=== PATIENT | male | born 1985 | race Two or more races ===

== ENCOUNTER → 2020-09-26 | Outpatient (CLI) | payer OTHER | END | disposition home or self-care (01) | LOC: PPH VACUNA 14:57 | DX: Z23 Encounter for immunization (principal) ==

== ENCOUNTER 2021-05-31 08:30 | Outpatient (CLI) | payer OTHER | END 2021-05-31 09:00 | disposition home or self-care (01) | LOC: PPH VACUNA 08:30 | PROVIDERS: ATTEND Emergency Medicine Pediatric Emergency Medicine | DX: Z23 Encounter for immunization (principal) ==

== ENCOUNTER 2023-02-06 23:59 | Inpatient (IN) | payer OTHER ==
[~2023-02-06] VITALS: Ht 177.8 cm; Wt 158.8 kg
[2023-02-07] MEDS ORDERED: AMLODIPINE-OLM1 EAC2 PO (00:26)
--- NOTE | 2023-02-07 00:26 | NUR ---
SE RECIBE PACIENTE ALERTA Y ORIENTADO X3, REFIERE TENER PRESION Y DOLOR DE PECHO Y DIFICULTAD RESPIRATORIA. PTE MENCIONA QUE INGIRIO DOS BEBIDAS ENERGIZANTES. SE REALIZA EKG, SE MONITOREAN VS Y SE UBICA.
--- NOTE | 2023-02-07 01:04 | NUR ---
PACIENTE ALERTA Y ORIENTADO X3. EN POSICION SENTADO EN CAMA #2 EN UNIDAD DE CRITICO CON BARANDAS ELEVADAS Y INTERCOM ACCESIBLE. SE CONECTA A MONITOR CARDIACO Y OXIMETRIA DE PULSO. SE COLOCA CANULA NASAL A 2L Y PACIENTE SATURANDO OXIGENO MANUAL 98%. SE ORIENTA SOBRE TX Y PROCEDIMIENTO A REALIZAR Y REFIRIO ENTENDER. SE ADMINISTRO NITROGLICERINA SL ORDENADA POR MD Y PACIENTE REFIRIO SENTIR ALIVIO DEL DOLOR. SE REALIZA MUESTRAS DE LABORATORIO BAJO MEDIDAS ASEPTICAS. SE CANALIZA EN BRAZO OBEY CON ANGIO #18 Y ANGIO #22 EN ANTEBRAZO OBEY BAJO MEDIDAS ASEPTICAS. CANALIZACIONES PATENTES Y MILAGROS DE EDEMA Y ERITEMA. PENDIENTE MUESTRA DE U/A. SE MANTIENE BAJO OBSERVACION POR CAMBIOS SIGNIFICATIVOS.
--- NOTE | 2023-02-07 01:40 | NUR ---
SE ADMINISTRA DRIP DE TRIDIL 50MG/250ML D5W BAJANDO A 3ML/HR. SE MONITOREAN SIGNOS VITALES.
--- NOTE | 2023-02-07 03:06 | NUR ---
PACIENTE REFIERE SENTIR MUCHOS GASES. SE ADMINISTRA MEDICAMENTO ORDENADO POR .
--- NOTE | 2023-02-07 05:41 | NUR ---
SE RECOLECTA MUESTRA DE U/A Y SE ENVIA A LABORATORIO.
--- NOTE | 2023-02-07 07:30 | NUR ---
SE RECIBE PTE MASCULINO DE 37 YRS ALERTA CONCIENTE Y TRANQUILO EN CAMA EN LA UNIDAD DE CRITICO DE [place] PAUL DE EMERGENCIA PTE SE OBSERVA CON TRIDIL 50/250 A 3 MLHRS. PTE CONSULTADO CON EL INTERNISTA. SE LE ADMINISTRA LOVENOX 80 MG DL A PTE Y SE MANTIENE MILAGROS DE DOLOR. SE OBSERVA CON MONITOR CARDICO Y OXIMETRO. .
--- NOTE | 2023-02-07 14:19 | NUR ---
PTE NO REFIERE DOLOR AL MOMENTO Y SE COME ROWDY SOPA LIGENA, SE MANTIENE ESTABEL AL MOMETO Y EN ESPERA DE MEDICO CONSULTOR.
--- NOTE | 2023-02-07 16:12 | NUR ---
SE RECIBE PTE ALERTA Y ORIETNADO X3 EN CAMA #2 DE UNIDAD DE CRITICO. PTE CON CABECERA A 45 GRADOS Y BARANDAS ELEVADAS. PTE CONECTGADO A MONITOR CARDIACO CON OXIMETRIA CONTINUA. SE OBSERVA VENOPUNCIONES X2 LIBRES DE EDEMA Y CON DRIP DE TRIDIL BAJANDO A 4ML/HR. PTE EN ESPERA DE CONSULTA CON MEDICIAN INTERNA. SE MIDEN S/V Y SE DOCUMENTAN. PTE SE MANTIENE BAJO OBSERVACION POR CAMBIOS EN WILSON CONDICION.
== END 2023-02-09 13:32 | disposition home or self-care (01) | DRG 311 ==
LOC: ER 23:59 → ICU-2 02-07 18:58
PROVIDERS: General Practice; ADMIT Internal Medicine; ATTEND Internal Medicine
PROC: 4A12X4Z Monitoring of Cardiac Electrical Activity, External Approach (ICD-10-PCS; principal; 2023-02-07)
PROC: B246ZZZ Ultrasonography of Right and Left Heart (ICD-10-PCS; 2023-02-07)
PROC: 3E0F7GC Introduction of Other Therapeutic Substance into Respiratory Tract, Via Natural or Artificial Opening (ICD-10-PCS; 2023-02-08)
DX: I20.0 Unstable angina (principal); I11.9 Hypertensive heart disease without heart failure; J45.909 Unspecified asthma, uncomplicated; G47.33 Obstructive sleep apnea (adult) (pediatric); F17.290 Nicotine dependence, other tobacco product, uncomplicated

== ENCOUNTER 2023-02-14 20:37 | Emergency (ER) | payer OTHER ==
[~2023-02-14] VITALS: Ht 182.9 cm; Wt 172.4 kg
[~2023-02-14 20:37] MED LIST: AMLODIPINE-OLM1 EAC2 PO
== END 2023-02-15 00:33 | disposition home or self-care (01) ==
LOC: ER
PROVIDERS: General Practice
DX: G47.30 Sleep apnea, unspecified (principal); R07.89 Other chest pain; I10 Essential (primary) hypertension

== ENCOUNTER 2024-03-06 00:46 | Emergency (ER) | payer OTHER ==
[~2024-03-06] VITALS: Ht 180.3 cm; Wt 167.8 kg
[2024-03-06] MEDS ORDERED: MONTELUKAST SOD10 MG PO (00:54)
[2024-03-06] MEDS ORDERED: MOUNJARO7.5 MG/0.5 SQ (01:10)
[2024-03-06] MEDS ORDERED: ARIPIPRAZOLE5 MG PO (01:11)
[2024-03-06] MEDS ORDERED: METFORMIN HCL500 M4 PO (01:11)
[2024-03-06] MEDS ORDERED: RINGERS SOLUTION,LACTATED 1,000 ML IV STA (01:29)
[2024-03-06] MEDS ORDERED: METOCLOPRAMIDE HCL 5 MG/ML VIAL IM STA (01:30)
[2024-03-06] MEDS ORDERED: MECLIZINE HCL 25 MG TABLET PO STA (01:31)
[2024-03-06 02:16] LABS: HEMOGLOBIN 15.8 g/dL (13-16.00); MEAN CELL VOLUME 78.6 fL (80.0-100.00); MEAN CORPUSCULAR HEMOGLOBIN 26.4 pg (27.00-32.0); MEAN CORPUSCULAR HGB CONC 33.6 g/dl (32.0-36.0); PLATELET COUNT 353 K/uL (150-450); RED BLOOD COUNT 5.99 M/uL (4.00-6.00); RED CELL DISTRIBUTION WIDTH 14.5 % (11.5-14.5)
[2024-03-06 02:26] LABS: INR 1.1; PROTHROMBIN TIME 11.9 SECONDS (9.0-11.5)
[2024-03-06 02:30] LABS: proBNP 16 pg/mL (0-39)
[2024-03-06 02:34] LABS: TROPONIN I hs < 3.0 PG/ML (42.2-82.3)
[2024-03-06 03:08] LABS: ALBUMIN 3.9 gm/dL (3.4-5.0); BILIRUBIN TOTAL 1.38 mg/dL (0.3-1.2); CALCIUM 9.5 mg/dL (8.5-10.1); CREATININE SERUM 1.24 mg/dL (0.70-1.30); GFR 64.9; GLOBULINA 5.2 G/DL (2.4-3.5); POTASSIUM 3.64 mEq/L (3.5-5.1); TOTAL PROTEIN 9.1 gm/dL (6.4-8.2)
== END 2024-03-06 05:49 | disposition home or self-care (01) ==
LOC: ER 00:47
DX: H81.10 Benign paroxysmal vertigo, unspecified ear (principal); G47.30 Sleep apnea, unspecified; R93.0 Abnormal findings on diagnostic imaging of skull and head, not elsewhere classified; E11.9 Type 2 diabetes mellitus without complications; Z79.84 Long term (current) use of oral hypoglycemic drugs; I10 Essential (primary) hypertension; Z20.822 Contact with and (suspected) exposure to COVID-19

== ENCOUNTER 2024-09-23 10:40 | Outpatient (CLI) | payer OTHER ==
[~2024-09-23 10:40] MED LIST changes: +ARIPIPRAZOLE5 MG PO; +METFORMIN HCL500 M4 PO; +MONTELUKAST SOD10 MG PO; +MOUNJARO7.5 MG/0.5 SQ
== END 2024-09-23 10:43 | disposition home or self-care (01) ==
LOC: SONOGRAMA 10:40
PROVIDERS: ATTEND Internal Medicine Gastroenterology
DX: R10.9 Unspecified abdominal pain (principal)